=== PATIENT | female | born 1975 | race Caucasian/White ===

== ENCOUNTER 2016-11-01 08:00 | Emergency (ER) | payer OTHER ==
--- NOTE | 2016-11-01 08:19 | PDOC ---
History of Present Illness - General Exam Limitations: Intoxication - History of Present Illness Initial Comments: CHIEF COMPLAINT: 41 y/o female with prior history of alcohol abuse presents to the ER intoxicated. HISTORY OF PRESENT ILLNESS: The patient was discharged from inpatient yesterday for alcohol withdrawal. She is now intoxicated again and can barely speak. She cannot tell me how much she drank. She has a history of withdrawal seizures. REVIEW OF SYSTEMS: Unobtainable secondary to intoxication. PHYSICAL EXAM: GENERAL: The patient is sleeping, arousable to verbal stimuli. Speech incoherent. HEAD: Normal with no signs of trauma. ENT: Pupils equal and dilated, round and reactive to light, extraocular movements intact, sclera anicteric, conjunctiva clear. Neck supple. LUNGS: Clear to auscultation bilaterally. Normal excursion. No respiratory distress or use of accessory muscles. CV: RRR, S1/S2, no MRG. Cap refill < 2 sec. ABDOMEN: Soft, non-distended, non-tender even to deep palpation, no hepatomegaly or splenomegaly, no masses. EXTREMITIES: Normal range of motion, no edema. NEUROLOGICAL: Normal speech, normal gait. CN II-XII grossly intact. PSYCH: Normal mood, normal affect. SKIN: Warm, dry, normal turgor, no rashes or lesions noted. <Cinthia Aparicio - Last Filed: 11/01/16 18:13> <Elizabeth Harrison - Last Filed: 11/02/16 15:18> - General Chief Complaint: Alcohol intoxication Stated Complaint: INTOXIFICATION Time Seen by Provider: 11/01/16 08:11 Past History - Immunization History Immunization Up to Date: No - Psycho/Social/Smoking Cessation Hx Anxiety: No Suicidal Ideation: No Smoking History: Unknown if ever smoked Have you smoked in the past 12 months: No Hx Alcohol Use: Yes Drug/Substance Use Hx: No Substance Use Type: Alcohol <Cinthia Aparicio - Last Filed: 11/01/16 18:13> <Elizabeth Harrison - Last Filed: 11/02/16 15:18> - Past Medical History Allergies/Adverse Reactions: Allergies Allergy/AdvReac Type Severity Reaction Status Date / Time No Known Allergies Allergy Verified 11/01/16 08:05 Home Medications: Ambulatory Orders Ibuprofen 600 mg PO Q6H PRN 10/30/16 Topiramate [Qudexy Xr] 200 mg PO DAILY 10/30/16 *Physical Exam - Vital Signs Last Vital Signs Temp Pulse Resp BP Pulse Ox 97.6 F 86 18 105/68 95 11/01/16 08:23 11/01/16 18:16 11/01/16 18:16 11/01/16 18:16 11/01/16 18:16 <Elizabeth Harrison - Last Filed: 11/02/16 15:18> ED Treatment Course - LABORATORY CBC & Chemistry Diagram: 11/01/16 09:00 11/01/16 09:00 <Cinthia Aparicio - Last Filed: 11/01/16 18:13> - LABORATORY CBC & Chemistry Diagram: 11/01/16 09:00 11/01/16 09:00 - ADDITIONAL ORDERS Additional order review: 11/01/16 09:00 RBC 4.20 MCV 97.5 H MCHC 33.6 RDW 14.5 MPV 7.3 L Neutrophils % 34.3 L Lymphocytes % 47.8 H Monocytes % 13.8 H Eosinophils % 3.4 Basophils % 0.7 - Medications Given in the ED: ED Medications Discontinued Medications Generic Name Dose Route Start Last Admin Trade Name Freq PRN Reason Stop Dose Admin Chlordiazepoxide HCl 15 mg 11/02/16 01:46 11/02/16 02:14 Librium - PO 11/02/16 01:47 15 mg ONCE ONE Administration Folic Acid 1 mg/ Thiamine HCl 1,000 mls @ 125 mls/hr 11/01/16 08:21 11/01/16 09 :37 100 mg/ Multivitamins/Minerals IVPB 11/01/16 16:20 125 mls/hr 10 ml/ Sodium Chloride ONCE ONE Administration Sodium Chloride 1,000 mls @ 1,000 mls/hr 11/01/16 09:58 11/01/16 10:24 Normal Saline - IV 11/01/16 10:57 1,000 mls/hr ASDIR STA Administration <Elizabeth Harrison - Last Filed: 11/02/16 15:18> Medical Decision Making - Medical Decision Making A/P: 41 y/o female intoxicated. Plan is as follows: 1. Labs 2. Banana bag The patient has been sleeping all day. AT about 5pm she was wheeled to the bathroom and stated she wanted Ativan but fell asleep again when she got to her bed. ETOH level drawn. I am signing this patient out to my colleague: URBANO Isaac In brief, this patient is being seen in the ED for a chief complaint of: alcohol intoxication I have completed the initial assessment interview note and have ordered: labs I have reviewed the following results: all Pending results are: none Plan for disposition is as follows: Once patient is sober, reassess and dispo <Cinthia Aparicio - Last Filed: 11/01/16 18:13> *DC/Admit/Observation/Transfer <Cinthia Aparicio - Last Filed: 11/01/16 18:13> - Attestations Physician Attestion: I reviewed the case with the mid-level practitioner and agree with the mid- level practitioner's assessment, diagnosis and disposition. <Elizabeth Harrison - Last Filed: 11/02/16 15:18> Diagnosis at time of Disposition: Alcohol abuse Alcohol intoxication Qualifiers: Complication of substance-induced condition: uncomplicated Qualified Code(s): F10.120 - Alcohol abuse with intoxication, uncomplicated - Discharge Dispostion Disposition: HOME - Patient Instructions Printed Discharge Instructions: DI for Alcohol Abuse
[2016-11-01] MEDS ORDERED: FOLIC ACID INJECTION - 1 MG, THIAMINE HCL 100 MG, MULTIVIT INJECTION ADULT 10 ML in SOD... IVPB ONE (08:21)
[2016-11-01 08:26] VITALS: TEMP 97.6; BMI 23.8
[2016-11-01 09:14] LABS: BASOPHIL 0.7 % (0-2.0); EOSINOPHIL 3.4 % (0-4.5); MCH 32.8 pg (25.7-33.7); MCHC 33.6 g/dl (32.0-36.0); MEAN CELL VOLUME 97.5 fl (80-96); MEAN PLT VOLUME 7.3 fl (7.5-11.1); NEUTROPHILS 34.3 % (42.8-82.8); PLATELET COUNT 180 K/MM3 (134-434); RDW 14.5 % (11.6-15.6); WHITE BLOOD COUNT 4.8 K/mm3 (4.0-10.0)
[2016-11-01 09:37] LABS: ALBUMIN 4.2 g/dl (3.4-5.0); ALK PHOS 55 U/L (45-117); ANION GAP 11 (8-16); BILIRUBIN,TOTAL 0.2 mg/dL (0.2-1.0); CO2 19 mmol/L (21-32); CREATININE 0.5 mg/dL (0.55-1.02); GLUCOSE,RANDOM 75 mg/dL (74-106); SGPT/ALT 26 U/L (12-78); TOT PROT 7.8 g/dl (6.4-8.2)
[2016-11-01 09:38] LABS: SGOT/AST 33 U/L (15-37)
[2016-11-01] MEDS ORDERED: SODIUM CHLORIDE 1,000 ML IV STA (09:58)
[2016-11-01 18:16] VITALS: BP 105/68; PULSE 86
--- NOTE | 2016-11-01 19:20 | PDOC ---
*Physical Exam - Vital Signs Last Vital Signs Temp Pulse Resp BP Pulse Ox 97.6 F 86 18 105/68 95 11/01/16 08:23 11/01/16 18:16 11/01/16 18:16 11/01/16 18:16 11/01/16 18:16 - Physical Exam Comments: 11/01/16 19:20 Sign-out received from outgoing ER provider Markus. Pt interviewed and examined. Ancillary studies reviewed. Awaiting sobriety, will reassess. 11/02/16 04:49 Patient awake, A&O x 3. Librium 15 mg po. Will discharge to home. ED Treatment Course - LABORATORY CBC & Chemistry Diagram: 11/01/16 09:00 11/01/16 09:00 - ADDITIONAL ORDERS Additional order review: Laboratory Results 11/01/16 11/01/16 17:58 09:00 Sodium 142 Potassium 5.9 H D Chloride 112 H Carbon Dioxide 19 L Anion Gap 11 BUN 9 D Creatinine 0.5 L Creat Clearance w eGFR > 60 Random Glucose 75 Calcium 8.0 L Total Bilirubin 0.2 D AST 33 D ALT 26 D Alkaline Phosphatase 55 Total Protein 7.8 D Albumin 4.2 Alcohol, Quantitative 60.2 H* 11/01/16 09:00 RBC 4.20 MCV 97.5 H MCHC 33.6 RDW 14.5 MPV 7.3 L Neutrophils % 34.3 L Lymphocytes % 47.8 H Monocytes % 13.8 H Eosinophils % 3.4 Basophils % 0.7 - Medications Given in the ED: ED Medications Discontinued Medications Generic Name Dose Route Start Last Admin Trade Name Freq PRN Reason Stop Dose Admin Folic Acid 1 mg/ Thiamine HCl 1,000 mls @ 125 mls/hr 11/01/16 08:21 11/01/16 09 :37 100 mg/ Multivitamins/Minerals IVPB 11/01/16 16:20 125 mls/hr 10 ml/ Sodium Chloride ONCE ONE Administration Sodium Chloride 1,000 mls @ 1,000 mls/hr 11/01/16 09:58 11/01/16 10:24 Normal Saline - IV 11/01/16 10:57 1,000 mls/hr ASDIR STA Administration *DC/Admit/Observation/Transfer Diagnosis at time of Disposition: Alcohol abuse Alcohol intoxication Qualifiers: Complication of substance-induced condition: uncomplicated Qualified Code(s): F10.120 - Alcohol abuse with intoxication, uncomplicated - Discharge Dispostion Admit: No - Patient Instructions Printed Discharge Instructions: DI for Alcohol Abuse
[2016-11-02] MEDS ORDERED: chlordiazePOXIDE 5 MG CAPSULE PO ONE (01:46)
[2016-11-02] MEDS ORDERED: chlordiazePOXIDE 5 MG CAPSULE ONE (02:08)
== END 2016-11-02 05:56 | disposition home or self-care (01) ==
LOC: JER 08:00
PROC: 3E033GC Introduction of Other Therapeutic Substance into Peripheral Vein, Percutaneous Approach (ICD-10-PCS; principal; 2016-11-01)
DX: F10.220 Alcohol dependence with intoxication, uncomplicated (principal)
CPT/HCPCS: 36415; 80053; 80307; 85025; 99283-25